=== PATIENT | male | born 1965 | race Caucasian/White ===

== ENCOUNTER → 2016-11-06 | Day surgery (SDC) | payer MEDICARE, OTHER ==
[~2016-11-06] VITALS: Ht 190.5 cm; Wt 65.8 kg
[~2016-11-06] MED LIST: AMITIZA24 MCG PO; ASPIRIN 325MG325 MG NG; COGENTIN 2MG TAB2 MG PO; FLOMAX 0.4 MG0.4 MG PO; FLUOCINOLON118.28 ML TP; INVEGA9 MG PO; LAMICTAL150 MG PO; LAMICTAL200 MG PO; LUVOX TAB 100100 MG PO; METAMUCIL FIBE3.4 GM PO; MIRALAX PACK 171 PKT PO; NEXIUM40 MG PO; NIASPAN500 MG PO; NIZORAL 2% SHA120 ML EXT; OSCAL 500 + D TA1 EA PO; PROTEIN DRINK; SENOKOT-S TABL1 EACH PO; THERA-M TABLET1 EACH PO; THORAZINE 100100 MG PO; ZYRTEC10 M3 PO
== END | disposition home or self-care (01) ==
LOC: OR 07:32
PROVIDERS: Internal Medicine Gastroenterology
PROC: 0DJ08ZZ Inspection of Upper Intestinal Tract, Via Natural or Artificial Opening Endoscopic (ICD-10-PCS; principal; 2016-11-06 10:15)
DX: T18.2XXA Foreign body in stomach, initial encounter (principal); K44.9 Diaphragmatic hernia without obstruction or gangrene; K21.9 Gastro-esophageal reflux disease without esophagitis; M85.80 Other specified disorders of bone density and structure, unspecified site; E80.4 Gilbert syndrome; Z88.8 Allergy status to other drugs, medicaments and biological substances; Z79.82 Long term (current) use of aspirin; Z79.899 Other long term (current) drug therapy; Z98.890 Other specified postprocedural states
CPT/HCPCS: 72050; 74000; J7120

== ENCOUNTER → 2016-12-11 | Outpatient (CLI) | payer MEDICARE, OTHER | LOC: NM 13:00 | DX: K31.84 Gastroparesis (principal); K31.89 Other diseases of stomach and duodenum; R93.3 Abnormal findings on diagnostic imaging of other parts of digestive tract | CPT/HCPCS: 78264; A9541 ==

== ENCOUNTER → 2021-05-29 | Outpatient (CLI) | payer MEDICARE, OTHER ==
[~2021-05-29] MED LIST changes: +AUGMENTIN 875-1 EACH PO
== END ==
LOC: KOH-I 11:09
DX: E78.5 Hyperlipidemia, unspecified (principal); M85.80 Other specified disorders of bone density and structure, unspecified site; R33.9 Retention of urine, unspecified; G40.909 Epilepsy, unspecified, not intractable, without status epilepticus; R39.16 Straining to void; R84.0 Abnormal level of enzymes in specimens from respiratory organs and thorax; E80.4 Gilbert syndrome; R80.9 Proteinuria, unspecified; R31.9 Hematuria, unspecified; K59.00 Constipation, unspecified; R63.6 Underweight; Z87.01 Personal history of pneumonia (recurrent); R91.8 Other nonspecific abnormal finding of lung field
CPT/HCPCS: 71046

== ENCOUNTER 2021-10-02 19:51 | Emergency (ER) | payer MEDICARE, OTHER ==
[2021-10-02 22:32] LABS: HEMOGLOBIN 14.5 gm/dl (14.0-17.5); RED BLOOD COUNT 4.55 M/UL (4.20-5.50); WHITE BLOOD COUNT 7.2 K/UL (4.5-11.0)
[2021-10-02 23:12] LABS: BUN/CREATININE RATIO 21 (0-10)
[2021-10-03] MEDS ORDERED: KRISTALOSE10 GM PO (00:04)
== END 2021-10-03 02:27 | disposition home or self-care (01) ==
LOC: ER1 19:51
PROVIDERS: Physician Assistant
DX: S22.078A Other fracture of T9-T10 vertebra, initial encounter for closed fracture (principal); K59.00 Constipation, unspecified; K21.9 Gastro-esophageal reflux disease without esophagitis; X58.XXXA Exposure to other specified factors, initial encounter; Y92.9 Unspecified place or not applicable
CPT/HCPCS: 80053; 81001; 83690; 85025; 99284; Q9967

== ENCOUNTER → 2021-10-21 | Outpatient (CLI) | payer MEDICARE, OTHER ==
[~2021-10-21] MED LIST changes: +KRISTALOSE10 GM PO
== END ==
LOC: EMI 11:13
DX: S22.079D Unspecified fracture of T9-T10 vertebra, subsequent encounter for fracture with routine healing (principal); S22.089D Unspecified fracture of T11-T12 vertebra, subsequent encounter for fracture with routine healing; M51.24 Other intervertebral disc displacement, thoracic region
CPT/HCPCS: 72146

== ENCOUNTER → 2022-02-21 | Outpatient (CLI) | payer MEDICARE, OTHER | LOC: KOH-I 12:55 | DX: S01.81XA Laceration without foreign body of other part of head, initial encounter (principal); M81.0 Age-related osteoporosis without current pathological fracture; M43.8X4 Other specified deforming dorsopathies, thoracic region; M47.812 Spondylosis without myelopathy or radiculopathy, cervical region | CPT/HCPCS: 70150; 72040; 72070 ==

== ENCOUNTER 2022-03-06 09:52 | Emergency (ER) | payer MEDICARE, OTHER | END 2022-03-06 13:15 | disposition home or self-care (01) | LOC: ER1 09:52 | DX: S33.9XXA Sprain of unspecified parts of lumbar spine and pelvis, initial encounter (principal); W19.XXXA Unspecified fall, initial encounter | CPT/HCPCS: 72100; 72220; 93005; 99284 ==

== ENCOUNTER → 2022-04-28 | Outpatient (CLI) | payer MEDICARE, OTHER ==
[~2022-04-28] MED LIST changes: +LACTULOSE20 GM/30 M PO
== END ==
LOC: CT 13:00
DX: R29.6 Repeated falls (principal)
CPT/HCPCS: 70470; Q9967

== ENCOUNTER → 2022-05-01 | Outpatient (CLI) | payer MEDICARE, OTHER | LOC: RAD 09:59 | DX: S01.81XA Laceration without foreign body of other part of head, initial encounter (principal); M81.0 Age-related osteoporosis without current pathological fracture; M43.12 Spondylolisthesis, cervical region; M43.8X4 Other specified deforming dorsopathies, thoracic region; X58.XXXA Exposure to other specified factors, initial encounter | CPT/HCPCS: 70150; 72040; 72070 ==

== ENCOUNTER → 2022-05-20 | Outpatient (CLI) | payer MEDICARE, OTHER | LOC: RAD 10:55 | DX: K59.00 Constipation, unspecified (principal) | CPT/HCPCS: 71045 ==